=== PATIENT | female | born 1990 | race Caucasian/White ===

== ENCOUNTER 2018-08-23 13:09 | Emergency (ER) | payer MEDICAID ==
[~2018-08-23] VITALS: Ht 170.2 cm; Wt 72.6 kg
[2018-08-23 13:12] VITALS: BP 107/67
--- NOTE | 2018-08-23 13:54 | NUR ---
1330 seen and eval by RICK dc home with RX
== END 2018-08-23 13:35 | disposition home or self-care (01) ==
LOC: ER 13:14
DX: B01.9 Varicella without complication (principal)
CPT/HCPCS: 99283; A4606; Z7610